=== PATIENT | female | born 1955 | race Caucasian/White ===

== ENCOUNTER 2025-05-29 12:50 | Outpatient (CLI) | payer MEDICARE, OTHER | END 2025-05-29 12:51 | disposition home or self-care (01) | LOC: CSHULT 12:50 | PROVIDERS: ATTEND Internal Medicine Hematology & Oncology | DX: C56.9 Malignant neoplasm of unspecified ovary (principal); C78.7 Secondary malignant neoplasm of liver and intrahepatic bile duct; Z79.899 Other long term (current) drug therapy; I35.8 Other nonrheumatic aortic valve disorders | CPT/HCPCS: 93306 ==